=== PATIENT | female | born 1995 | race Caucasian/White ===

== ENCOUNTER 2020-08-24 17:27 | Emergency (ER) | payer MEDICAID ==
[~2020-08-24] VITALS: Ht 175.3 cm; Wt 81.6 kg
[2020-08-24] MEDS ORDERED: BACITRACIN 1 GM OINT TP ONE (17:45)
[2020-08-24] MEDS ORDERED: DIPH-TET-PERTUS Vaccine 0.5 ML VIAL (ADACEL) I.M. ONE (17:45)
[2020-08-24] MEDS ORDERED: IBUPROFEN 800 MG TABLET PO ONE (17:45)
[2020-08-24] MEDS ORDERED: LIDOCAINE/EPI 1% 1:100000 20 ML VIAL INJ ONE (17:45)
[2020-08-24] MEDS ORDERED: HYDROcodone/ACETAMIN 5-325 MG TAB (NORCO/ VICODIN) PO ONE (17:45)
[2020-08-24 17:49] VITALS: BP_SYST 140
[2020-08-24 18:37] VITALS: BP_SYST 140
[2020-08-25] MEDS ORDERED: MORPHINE 4 MG INJ. 4 MG/ML VIAL ONE (00:26)
[2020-08-25] MEDS ORDERED: CLIN300C12 PO (21:10)
== END 2020-08-24 18:35 | disposition home or self-care (01) ==
LOC: SED 17:27
DX: S81.811A Laceration without foreign body, right lower leg, initial encounter (principal); W45.8XXA Other foreign body or object entering through skin, initial encounter; Y93.89 Activity, other specified; Y92.89 Other specified places as the place of occurrence of the external cause; Y99.8 Other external cause status
CPT/HCPCS: 12006; 90715; 99283; J2270

== ENCOUNTER 2020-08-25 20:10 | Emergency (ER) | payer MEDICAID ==
[~2020-08-25] VITALS: Ht 175.3 cm; Wt 79.4 kg
[2020-08-25 20:17] VITALS: BP_SYST 114
[2020-08-25] MEDS: BACITRACIN 1 GM OINT TP ONE ×2 (20:24→21:04)
[2020-08-25] MEDS ORDERED: LIDOCAINE 1% 10 MG/ML, 20 ML MDV INJ ONE (20:30)
[2020-08-25] MEDS ORDERED: CLIN300C12 PO (21:10)
[2020-08-25] MEDS ORDERED: CLINDAMYCIN HCL 150 MG CAPSULE PO ONE (21:15)
[2020-08-25 21:26] VITALS: BP_SYST 114
== END 2020-08-25 21:26 | disposition home or self-care (01) ==
LOC: SED 20:10
DX: T81.31XA Disruption of external operation (surgical) wound, not elsewhere classified, initial encounter (principal); Z79.899 Other long term (current) drug therapy
CPT/HCPCS: 12020; 99284; J2001

== ENCOUNTER 2020-08-28 09:57 | Emergency (ER) | payer MEDICAID ==
[~2020-08-28] VITALS: Ht 175.3 cm; Wt 79.4 kg
[2020-08-28 09:57] VITALS: BP_SYST 119
[~2020-08-28 09:57] MED LIST: CLIN300C12 PO
[2020-08-28 10:25] VITALS: BP_SYST 121
[2020-08-28] MEDS: BACITRACIN 1 GM OINT TP ONE (10:40)
== END 2020-08-28 10:25 | disposition home or self-care (01) ==
LOC: SED 09:57
DX: S81.011D Laceration without foreign body, right knee, subsequent encounter (principal); Z48.00 Encounter for change or removal of nonsurgical wound dressing; W45.8XXD Other foreign body or object entering through skin, subsequent encounter
CPT/HCPCS: 99282

== ENCOUNTER 2020-09-07 13:40 | Emergency (ER) | payer MEDICAID ==
[~2020-09-07] VITALS: Ht 175.3 cm; Wt 79.4 kg
[2020-09-07 13:47] VITALS: BP_SYST 125
[2020-09-07 14:18] VITALS: BP_SYST 125
== END 2020-09-07 14:18 | disposition home or self-care (01) ==
LOC: SED 13:40
DX: S81.011D Laceration without foreign body, right knee, subsequent encounter (principal); Z48.02 Encounter for removal of sutures; W45.8XXD Other foreign body or object entering through skin, subsequent encounter
CPT/HCPCS: 99281

== ENCOUNTER 2020-12-30 17:30 | Emergency (ER) | payer MEDICAID ==
[~2020-12-30] VITALS: Ht 170.2 cm; Wt 54.4 kg
[2020-12-30 17:56] VITALS: BP_SYST 110
--- NOTE | 2020-12-30 17:56 | NUR ---
Patient to ER bed Tent 1 to gown for evaluation.
--- NOTE | 2020-12-30 18:00 | NUR ---
Pt brought by self, A&Ox4, pt presents to ER with N/V weakness, pt was positive for covid 12 days ago, pt denies SOB , O2 98 %, afebrile, respirations even and unlabored, cap refill <3, will cont to monitor.
--- NOTE | 2020-12-30 18:30 | NUR ---
Dr Hodge evaluating patient in the tent
[2020-12-30] MEDS ORDERED: NACL 0.9% 1,000 ML IV ONE (18:45)
[2020-12-30 19:10] LABS: BASOPHILS % (AUTO) 0.3 % (0.0-2.0); EOSINOPHILS % (AUTO) 0.7 % (0.0-4.0); HEMOGLOBIN 13.4 g/dL (12.0-16.0); LYMPHOCYTES # (AUTO) 2.3 K/uL (1.0-5.5); LYMPHOCYTES % (AUTO) 35.8 % (20.5-51.5); MEAN CORPUSCULAR HEMOGLOBIN 26 pg (27-31); MEAN CORPUSCULAR HGB CONC 33 % (32-36); MEAN CORPUSCULAR VOLUME 79 fL (79.0-98.0); MONOCYTES # (AUTO) 0.7 K/uL (0.0-1.0); MONOCYTES % (AUTO) 10.9 % (1.7-9.3); NEUTROPHILS # (AUTO) 3.4 K/uL (1.8-7.7); NEUTROPHILS % (AUTO) 52.3 % (40.0-70.0); PLATELET COUNT (AUTO) 218 K/uL (130-430); RED BLOOD CELL COUNT(AUTO) 5.21 MIL/uL (4.2-6.2); RED CELL DISTRIBUTION WIDTH 14.2 % (9.0-15.0); WHITE BLOOD COUNT (AUTO) 6.4 K/uL (4.8-10.8)
[2020-12-30 19:14] LABS: CREATININE 0.75 mg/dL (0.55-1.30); POTASSIUM 3.7 mmol/L (3.5-5.1)
--- NOTE | 2020-12-30 19:20 | NUR ---
Pt A&Ox4, VSS, respirations even and unlabored, will cont to monitor.
[2020-12-30 19:25] LABS: ALBUMIN 3.4 g/dL (3.4-4.8); TOTAL BILIRUBIN 0.3 mg/dL (0.0-1.0)
[2020-12-30] MEDS ORDERED: PROC10TA13 PO (21:07)
[2020-12-30 21:24] VITALS: BP_SYST 112
--- NOTE | 2020-12-30 21:24 | NUR ---
Patient given written and verbal discharge instructions and verbalizes understanding. ER MD discussed with patient the results and treatment provided. Patient in stable condition. ID arm band removed. IV catheter removed intact and dressing applied, no active bleeding. Rx of compazine given. Patient educated on pain management and to follow up with PMD. Pain Scale 0/10 Opportunity for questions provided and answered. Medication side effect fact sheet provided.
== END 2020-12-30 21:24 | disposition home or self-care (01) ==
LOC: SED 17:30
DX: R53.1 Weakness (principal); R11.2 Nausea with vomiting, unspecified; Z79.899 Other long term (current) drug therapy
CPT/HCPCS: 36415; 80053; 84702; 85025; 96360; 99283; J7030